=== PATIENT | male | born 1985 | race Caucasian/White ===

== ENCOUNTER 2018-02-16 13:22 | Emergency (ER) | payer MEDICAID ==
[~2018-02-16] VITALS: Ht 188 cm; Wt 173.0 kg
[~2018-02-16 13:22] MED LIST: FOLI-43 PO; METO-539 PO; MULT-348 PO; NEPVIT PO; OLAN5TAB3 PO; PANT40TA4 PO; PROT40 PO; SERT-112 PO; THIA100T72 PO
[2018-02-16] MEDS ORDERED: ONDANSETRON HCL 4MG/2ML VIAL IV STA (14:20)
[2018-02-16] MEDS ORDERED: SODIUM CHLORIDE 0.9% 1,000 ML IV ONE (14:20)
[2018-02-16 14:56] LABS: BASOPHILS % 0.2 % (0.0-2.0); EOSINOPHILS % 0.3 % (0.0-5.0); HEMATOCRIT. 39.7 % (42.0-52.0); LYMPHOCYTES % 19.5 % (20.0-50.0); MEAN CORPUSCULAR HEMOGLOBIN 26.5 pg (28.0-32.0); MEAN CORPUSCULAR VOLUME 81.1 fL (80.0-94.0); MONOCYTES % 4.3 % (2.0-8.0); NEUTROPHILS % 75.7 % (40.0-76.0); PLATELET 269 x1000/uL (130-400); RED BLOOD CELL COUNT 4.89 mill/uL (4.7-6.1); RED CELL DISTRIBUTION WIDTH 14.6 % (11.6-14.6)
[2018-02-16 14:58] LABS: *COCAINE SCREEN URINE NEGATIVE (NEGATIVE); OPIATES URINE SCREEN NEGATIVE (NEGATIVE)
[2018-02-16 14:59] LABS: *BARBITURATES SCREEN URINE NEGATIVE (NEGATIVE)
[2018-02-16 15:01] LABS: CANNABINOID URINE SCREEN NEGATIVE (NEGATIVE); PHENCYCLIDINE URINE SCREEN NEGATIVE (NEGATIVE)
[2018-02-16 15:02] LABS: *BENZODIAZEPINES SCREEN URINE NEGATIVE (NEGATIVE); METHADONE URINE SCREEN NEGATIVE (NEGATIVE)
[2018-02-16 15:03] LABS: *AMPHETAMINES SCREEN URINE NEGATIVE (NEGATIVE)
[2018-02-16 15:05] LABS: PARTIAL THROMBOPLASTIN TIME 29.9 sec (23.4-31.0); PROTHROMBIN TIME 10.4 sec (9.4-11.6)
[2018-02-16 15:30] LABS: CHLORIDE 108 mEq/L (98-107)
[2018-02-16 15:35] LABS: ETHANOL BLOOD 271 mg/dL
[2018-02-16 18:09] VITALS: BP 112/62
== END 2018-02-16 18:11 | disposition home or self-care (01) ==
LOC: ER 14:24
DX: G92 Toxic encephalopathy (principal); T51.91XA Toxic effect of unspecified alcohol, accidental (unintentional), initial encounter; E66.01 Morbid (severe) obesity due to excess calories; I10 Essential (primary) hypertension; Z68.42 Body mass index [BMI] 45.0-49.9, adult; Z79.899 Other long term (current) drug therapy; Z88.5 Allergy status to narcotic agent; Y92.89 Other specified places as the place of occurrence of the external cause
CPT/HCPCS: 36415; 71045; 80053; 80305; 80307; 80329; 83690; 83880; 84484; 85025; 85610; 85730; 93005; 96374; 99285; G0482; J2405; J7030

== ENCOUNTER 2018-02-21 15:42 | Inpatient (IN) | payer MEDICAID ==
[~2018-02-21] VITALS: Ht 175.3 cm; Wt 181.4 kg
[2018-02-21] MEDS ORDERED: LORAZEPAM 2MG/ML CPJ IV ONE (16:00)
[2018-02-21] MEDS ORDERED: SODIUM CHLORIDE 0.45% 500 ML IV ONE (16:15)
[2018-02-21 16:26] LABS: BASOPHILS % 0.3 % (0.0-2.0); EOSINOPHILS % 0.1 % (0.0-5.0); HEMATOCRIT. 40.7 % (42.0-52.0); HEMOGLOBIN. 13.3 g/dL (14.0-18.0); LYMPHOCYTES % 22.7 % (20.0-50.0); MEAN CORPUSCULAR HEMOGLOBIN 26.6 pg (28.0-32.0); MEAN CORPUSCULAR VOLUME 81.8 fL (80.0-94.0); MEAN PLATELET VOLUME 7.6 fl (7.4-10.4); MONOCYTES % 5.3 % (2.0-8.0); NEUTROPHILS % 71.6 % (40.0-76.0); PLATELET 317 x1000/uL (130-400); RED BLOOD CELL COUNT 4.98 mill/uL (4.7-6.1); RED CELL DISTRIBUTION WIDTH 14.8 % (11.6-14.6)
[2018-02-21 16:34] LABS: INR 1.1; PROTHROMBIN TIME 11.4 sec (9.4-11.6)
[2018-02-21 16:35] LABS: CHLORIDE 99 mEq/L (98-107)
[2018-02-21 16:39] LABS: ETHANOL BLOOD 120 mg/dL
[2018-02-21 16:42] LABS: AMMONIA 22 uMol/L (<32)
[2018-02-21] MEDS ORDERED: CYANOCOBALAMIN 1000MCG/ML VIAL IM ONE (17:00)
[2018-02-21] MEDS ORDERED: SODIUM CHLORIDE 0.9% 1000ML BAG (SEPSIS BOLUS) IV ONE (17:00)
[2018-02-21 18:42] LABS: CLARITY URINE CLEAR (CLEAR); COLOR URINE DARK YELLOW (YELLOW); KETONES URINE TRACE (NEGATIVE); LEUKOCYTE ESTERASE URINE NEGATIVE (NEGATIVE); NITRITE URINE NEGATIVE (NEGATIVE); OCCULT BLOOD URINE TRACE (NEGATIVE); PH URINE 5.5 (4.5-8.0); PROTEIN URINE 2+ (NEGATIVE); SPECIFIC GRAVITY URINE 1.026 (1.005-1.030)
[2018-02-21 19:04] LABS: *AMPHETAMINES SCREEN URINE NEGATIVE (NEGATIVE); *BARBITURATES SCREEN URINE NEGATIVE (NEGATIVE); *BENZODIAZEPINES SCREEN URINE PRESUMTIVE POSITIVE (NEGATIVE); *COCAINE SCREEN URINE NEGATIVE (NEGATIVE); METHADONE URINE SCREEN NEGATIVE (NEGATIVE)
[2018-02-21 19:05] LABS: CANNABINOID URINE SCREEN NEGATIVE (NEGATIVE); OPIATES URINE SCREEN NEGATIVE (NEGATIVE)
[2018-02-21 19:07] LABS: PHENCYCLIDINE URINE SCREEN NEGATIVE (NEGATIVE)
[2018-02-21] MEDS ORDERED: CLONIDINE 0.2MG TABLET PO ONE (20:30)
[2018-02-21] MEDS ORDERED: CEFTRIAXONE 1 G PREMIX 50 ML IV ONE (23:00)
[2018-02-21] MEDS ORDERED: CLONIDINE 0.1MG TABLET PO ONE (23:15)
[2018-02-22] MEDS ORDERED: LORAZEPAM 2MG/ML CPJ IV ONE (08:15)
[2018-02-22 10:00] VITALS: BP 142/85
[2018-02-22] MEDS ORDERED: NA PHOS,M-B/NA PHOS,DI-BA ENEMA 118ML PR PRN (10:30)
[2018-02-22] MEDS ORDERED: ONDANSETRON HCL 4MG/2ML VIAL IV PRN (10:30)
[2018-02-22] MEDS ORDERED: LORAZEPAM 2MG/ML CPJ IV PRN (10:30)
[2018-02-22] MEDS ORDERED: ACETAMINOPHEN 325MG TABLET PO PRN (10:30)
[2018-02-22] MEDS ORDERED: GUAIFENESIN 200MG/10ML SUGAR FREE UDC PO PRN (10:30)
[2018-02-22] MEDS ORDERED: ACETAMINOPHEN 650MG/20.3ML UDC GT PRN (10:30)
[2018-02-22] MEDS ORDERED: MAGNESIUM/ALUMINUM HYDROXIDE/SIMETHICONE 30ML UDC PO PRN (10:30)
[2018-02-22] MEDS ORDERED: DOCUSATE SODIUM 100MG CAPSULE PO PRN (10:30)
[2018-02-22] MEDS ORDERED: ACETAMINOPHEN 650MG SUPP PR PRN (10:30)
[2018-02-22 11:28] VITALS: BP 142/85
[2018-02-22] MEDS: IPRATROPIUM/ALBUTEROL 0.5-3(2.5)MG/3ML NEB INH SCH ×2 (12:47→20:37)
[2018-02-22 13:21] LABS: BASOPHILS % 0.2 % (0.0-2.0); EOSINOPHILS % 0.4 % (0.0-5.0); HEMATOCRIT. 37.1 % (42.0-52.0); LYMPHOCYTES % 24.8 % (20.0-50.0); MEAN CORPUSCULAR HEMOGLOBIN 26.4 pg (28.0-32.0); MEAN CORPUSCULAR VOLUME 81.1 fL (80.0-94.0); MEAN PLATELET VOLUME 7.9 fl (7.4-10.4); MONOCYTES % 5.3 % (2.0-8.0); NEUTROPHILS % 69.3 % (40.0-76.0); PLATELET 222 x1000/uL (130-400); RED BLOOD CELL COUNT 4.57 mill/uL (4.7-6.1); RED CELL DISTRIBUTION WIDTH 15.1 % (11.6-14.6)
[2018-02-22 13:36] LABS: CHLORIDE 102 mEq/L (98-107)
[2018-02-22] MEDS: MULTIVITAMINS,THER W-MINERALS TABLET PO SCH (14:02)
[2018-02-22] MEDS: FOLIC ACID/VITAMIN B COMP W-C TABLET PO SCH (14:02)
[2018-02-22] MEDS: THIAMINE HCL 100MG TABLET PO SCH (14:02)
[2018-02-22] MEDS: METOPROLOL TARTRATE 50MG TABLET PO SCH ×2 (16:31→22:37)
[2018-02-22] MEDS: SERTRALINE HCL 100MG TABLET PO SCH (16:32)
[2018-02-22] MEDS ORDERED: SODIUM CHL 0.45% + KCL 20MEQ/L 1,000 ML IV SCH ×5 (18:00→18:30)
[2018-02-22 19:53] LABS: FOLIC ACID (FOLATE) SERUM 2.6 ng/mL (>5.38)
[2018-02-22 20:00] VITALS: BP 128/86
[2018-02-22] MEDS: SODIUM CHL 0.45% + KCL 20MEQ/L 1,000 ML IV SCH (20:47)
[2018-02-22] MEDS: CHLORDIAZEPOXIDE 25MG CAPSULE PO SCH (20:48)
[2018-02-22 21:04] LABS: AMMONIA 41 uMol/L (<32)
[2018-02-23] VITALS: BP 142/88
[2018-02-23] MEDS: IPRATROPIUM/ALBUTEROL 0.5-3(2.5)MG/3ML NEB INH SCH ×4 (00:31→21:20)
[2018-02-23 01:01] LABS: CREATINE KINASE 368 IU/L (39-308)
[2018-02-23 01:02] LABS: CREATINE KINASE MB FRACTION < 0.5 ng/mL (0.5-3.6)
[2018-02-23] MEDS: CHLORDIAZEPOXIDE 25MG CAPSULE PO SCH ×3 (02:10→18:12)
[2018-02-23 04:00] VITALS: BP 126/78
[2018-02-23] MEDS: METOPROLOL TARTRATE 50MG TABLET PO SCH ×2 (05:27→18:13)
[2018-02-23] MEDS: SODIUM CHL 0.45% + KCL 20MEQ/L 1,000 ML IV SCH ×3 (05:27→22:10)
[2018-02-23 06:56] LABS: AMMONIA 44 uMol/L (<32)
[2018-02-23 07:01] LABS: BASOPHILS % 0.2 % (0.0-2.0); EOSINOPHILS % 1.1 % (0.0-5.0); HEMATOCRIT. 35.6 % (42.0-52.0); HEMOGLOBIN. 11.7 g/dL (14.0-18.0); LYMPHOCYTES % 34.5 % (20.0-50.0); MEAN CORPUSCULAR HEMOGLOBIN 26.9 pg (28.0-32.0); MEAN CORPUSCULAR VOLUME 81.7 fL (80.0-94.0); NEUTROPHILS % 59.2 % (40.0-76.0); PLATELET 192 x1000/uL (130-400); RED BLOOD CELL COUNT 4.36 mill/uL (4.7-6.1); RED CELL DISTRIBUTION WIDTH 14.9 % (11.6-14.6)
[2018-02-23 07:37] LABS: CHLORIDE 103 mEq/L (98-107)
[2018-02-23 07:52] LABS: PHOSPHORUS 2.6 mg/dL (2.5-4.9)
[2018-02-23 07:54] LABS: LDL CHOLESTEROL 36 mg/dL (5-100)
[2018-02-23 07:56] LABS: HDL CHOLESTEROL 41 mg/dL (40-59)
[2018-02-23 07:57] LABS: T4 FREE 1.77 ng/dL (0.76-1.46)
[2018-02-23 08:02] VITALS: BP 128/86
[2018-02-23] MEDS: FOLIC ACID/VITAMIN B COMP W-C TABLET PO SCH (08:42)
[2018-02-23] MEDS: THIAMINE HCL 100MG TABLET PO SCH (08:42)
[2018-02-23] MEDS: MULTIVITAMINS,THER W-MINERALS TABLET PO SCH (08:42)
[2018-02-23] MEDS: SERTRALINE HCL 100MG TABLET PO SCH (08:42)
[2018-02-23 12:17] VITALS: BP 135/85
[2018-02-23 16:09] VITALS: BP 147/78
[2018-02-23] MEDS ORDERED: METHIMAZOLE 5MG TABLET PO SCH (17:00)
[2018-02-23 20:00] VITALS: BP 138/83
[2018-02-23] MEDS: PROPRANOLOL HCL 20MG TABLET PO SCH (21:00)
[2018-02-23] MEDS: LACTULOSE 20G/30ML UDC PO SCH (22:10)
[2018-02-23] MEDS: METHIMAZOLE 5MG TABLET PO SCH (22:11)
[2018-02-24] VITALS: BP 147/87
[2018-02-24] MEDS: CHLORDIAZEPOXIDE 25MG CAPSULE PO SCH ×3 (02:08→17:34)
[2018-02-24] MEDS: IPRATROPIUM/ALBUTEROL 0.5-3(2.5)MG/3ML NEB INH SCH ×4 (02:35→21:07)
[2018-02-24 04:00] VITALS: BP 158/113
[2018-02-24 06:00] LABS: BASOPHILS % 0.4 % (0.0-2.0); EOSINOPHILS % 2.6 % (0.0-5.0); HEMATOCRIT. 35.4 % (42.0-52.0); HEMOGLOBIN. 11.5 g/dL (14.0-18.0); MEAN CORPUSCULAR HEMOGLOBIN 26.8 pg (28.0-32.0); MEAN CORPUSCULAR VOLUME 82.1 fL (80.0-94.0); MEAN PLATELET VOLUME 8.3 fl (7.4-10.4); MONOCYTES % 4.7 % (2.0-8.0); NEUTROPHILS % 58.3 % (40.0-76.0); PLATELET 176 x1000/uL (130-400); RED BLOOD CELL COUNT 4.31 mill/uL (4.7-6.1); RED CELL DISTRIBUTION WIDTH 14.8 % (11.6-14.6)
[2018-02-24 06:04] LABS: CHLORIDE 105 mEq/L (98-107)
[2018-02-24 06:18] LABS: PHOSPHORUS 3.7 mg/dL (2.5-4.9)
[2018-02-24] MEDS: LACTULOSE 20G/30ML UDC PO SCH ×3 (06:38→21:23)
[2018-02-24 06:44] LABS: AMMONIA 54 uMol/L (<32)
[2018-02-24 08:00] VITALS: BP 129/90
[2018-02-24] MEDS: MULTIVITAMINS,THER W-MINERALS TABLET PO SCH (08:57)
[2018-02-24] MEDS: FOLIC ACID/VITAMIN B COMP W-C TABLET PO SCH (08:57)
[2018-02-24] MEDS: METHIMAZOLE 5MG TABLET PO SCH ×2 (08:57→17:35)
[2018-02-24] MEDS: THIAMINE HCL 100MG TABLET PO SCH (08:57)
[2018-02-24] MEDS: SERTRALINE HCL 100MG TABLET PO SCH (08:58)
[2018-02-24] MEDS: PROPRANOLOL HCL 20MG TABLET PO SCH ×2 (09:01→20:45)
[2018-02-24] MEDS: SODIUM CHL 0.45% + KCL 20MEQ/L 1,000 ML IV SCH ×2 (11:04→20:45)
[2018-02-24 11:38] LABS: CREATINE KINASE 118 IU/L (39-308)
[2018-02-24 12:00] VITALS: BP 156/94
[2018-02-24 17:11] VITALS: BP 141/88
[2018-02-24 20:00] VITALS: BP 148/99
[2018-02-25] VITALS: BP 153/91
[2018-02-25] MEDS: IPRATROPIUM/ALBUTEROL 0.5-3(2.5)MG/3ML NEB INH SCH ×2 (01:08→08:55)
[2018-02-25] MEDS: CHLORDIAZEPOXIDE 25MG CAPSULE PO SCH ×2 (01:28→10:00)
[2018-02-25 04:00] VITALS: BP 149/87
[2018-02-25] MEDS: LACTULOSE 20G/30ML UDC PO SCH ×2 (05:40→14:00)
[2018-02-25 06:02] LABS: BASOPHILS % 0.3 % (0.0-2.0); EOSINOPHILS % 4.3 % (0.0-5.0); HEMATOCRIT. 37.8 % (42.0-52.0); HEMOGLOBIN. 12.2 g/dL (14.0-18.0); LYMPHOCYTES % 28.9 % (20.0-50.0); MEAN CORPUSCULAR HEMOGLOBIN 26.9 pg (28.0-32.0); MEAN CORPUSCULAR VOLUME 83.1 fL (80.0-94.0); MEAN PLATELET VOLUME 8.1 fl (7.4-10.4); NEUTROPHILS % 61.5 % (40.0-76.0); PLATELET 170 x1000/uL (130-400); RED BLOOD CELL COUNT 4.55 mill/uL (4.7-6.1); RED CELL DISTRIBUTION WIDTH 14.7 % (11.6-14.6)
[2018-02-25 06:04] LABS: AMMONIA 24 uMol/L (<32)
[2018-02-25 06:21] LABS: CHLORIDE 106 mEq/L (98-107)
[2018-02-25 08:00] VITALS: BP 141/85
[2018-02-25] MEDS: SERTRALINE HCL 100MG TABLET PO SCH (08:42)
[2018-02-25] MEDS: FOLIC ACID/VITAMIN B COMP W-C TABLET PO SCH (08:43)
[2018-02-25] MEDS: THIAMINE HCL 100MG TABLET PO SCH (08:43)
[2018-02-25] MEDS: PROPRANOLOL HCL 20MG TABLET PO SCH (08:43)
[2018-02-25] MEDS: METHIMAZOLE 5MG TABLET PO SCH ×2 (08:43→17:00)
[2018-02-25] MEDS: MULTIVITAMINS,THER W-MINERALS TABLET PO SCH (08:44)
[2018-02-25 12:00] VITALS: BP 139/81
[2018-02-25 14:31] VITALS: BP 131/80
[2018-02-25 16:00] VITALS: BP 145/90
== END 2018-02-25 17:33 | disposition home or self-care (01) | DRG 241 ==
LOC: ER 15:42 → 7WST 21:00 → EDBEDREQTM 21:03 → EDBEDREQ 21:03 → ENRESERV 02-22 09:25
PROVIDERS: ADMIT Internal Medicine; ATTEND Internal Medicine
DX: K29.20 Alcoholic gastritis without bleeding (principal); N17.0 Acute kidney failure with tubular necrosis; G92 Toxic encephalopathy; E72.20 Disorder of urea cycle metabolism, unspecified; Z68.43 Body mass index [BMI] 50.0-59.9, adult; F15.10 Other stimulant abuse, uncomplicated; I10 Essential (primary) hypertension; D50.9 Iron deficiency anemia, unspecified; F20.9 Schizophrenia, unspecified; E53.8 Deficiency of other specified B group vitamins; E05.90 Thyrotoxicosis, unspecified without thyrotoxic crisis or storm; E66.01 Morbid (severe) obesity due to excess calories; Y90.6 Blood alcohol level of 120-199 mg/100 ml; F19.10 Other psychoactive substance abuse, uncomplicated; F10.129 Alcohol abuse with intoxication, unspecified; F31.9 Bipolar disorder, unspecified; R10.9 Unspecified abdominal pain; F41.9 Anxiety disorder, unspecified; K21.9 Gastro-esophageal reflux disease without esophagitis; Z82.49 Family history of ischemic heart disease and other diseases of the circulatory system; Z82.41 Family history of sudden cardiac death; Z88.5 Allergy status to narcotic agent; Z79.899 Other long term (current) drug therapy; Z87.440 Personal history of urinary (tract) infections; Z91.14 Patient's other noncompliance with medication regimen
CPT/HCPCS: 36415; 70450; 71045; 80048; 80053; 80061; 80076; 80305; 81003; 82140; 82533; 82550; 82553; 82607; 82746; 83036; 83520; 83605; 83690; 83735; 83880; 84100; 84145; 84439; 84443; 84481; 84484; 85025; 85379; 85610; 86376; 92610; 93005; 93306; 93970; 96365; 96372; 96375; 97116; 97162; 97166; 99291; G0482; J0696; J2060; J3420; J3480; J7030; J7620